=== PATIENT | male | born 1955 | race Caucasian/White ===

== ENCOUNTER 2016-06-04 15:44 | Emergency (ER) | payer OTHER ==
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
--- NOTE | 2016-06-04 19:02 | ED ORDER SUMMARY ---
..... Patient: EMILY MEJIA OrderSheet [facility] VisitID: [id number] [place] [address] 61y, M Registration Date/Time: 06/04/2016 ORDER SHEET Weight: 68.0 kg (stated) Allergies: None GENERAL ORDERS: Chest 1V Urgent (16:49 06/04/2016 Lula BLAS) (16:59 DMaziarka R.N.) Camp Program Director (Continuous) (16:49 06/04/2016 Lula BLAS) (16:50 DMaelizabetharka R.N.) Cardiac Panel Stat (16:50 06/04/2016 Lula BLAS) (16:50 DMaziarka R.N.) BNP Urgent (16:50 06/04/2016 Lula BLAS) (16:51 DMaziarka R.N.) PT with INR Urgent (16:50 06/04/2016 Lula BLAS) (16:51 DMaziarka R.N.) Oxygen (2 L/min) (NC) (16:50 06/04/2016 Lula BLAS) (16:50 DMaziarka R.N.) Pulse oximeter (16:50 06/04/2016 Lula BLAS) (16:50 DMaziarka R.N.) EKG - ER Stat (16:50 06/04/2016 Lula BLAS) (16:50 DMaziarka R.N.) (16:52 PWeiler ER Tech1) Troponin-I Urgent (18:06 06/04/2016 Lula BLAS) (Ack 18:07 George) (18:30 DMaziarka R.N.) MEDICATION ORDERS: DuoNeb Neb Tx 1 unit dose (NOW) (16:50 06/04/2016 Lula BLAS) (16:54 MNance) Metoprolol PO 50 mg (HIGH ALERT MEDICATION, NOW) (18:02 06/04/2016 Lula BLAS) (Ack 18:02 DMaziarka R.N.) (18:06 DMaziarka R.N.) IV FLUIDS: IV NS : initial bolus 500 mL (1000 mL/hr), then 100 mL/hr (NOW) (16:49 06/04/2016 Lula BLAS) (17:00 DMaziarka R.N.) Solu-MEDROL IV 125 mg (NOW) (16:50 06/04/2016 Lula BLAS) (16:59 DMaziarka R.N.) Dilaudid IV 1 mg (HIGH ALERT MEDICATION, NOW) (16:57 06/04/2016 Lula BLAS) (17:08 DMaziarka R.N.) Dilaudid IV 1 mg (HIGH ALERT MEDICATION, NOW) (18:29 06/04/2016 Lula BLAS) (18:36 DMaziarka R.N.) ORDER SHEET NOTES: [Electronically signed by Olvin Cabrrea R.N. (19:28 06/04/2016)] [Electronically signed by Nae Duque MD (14:34 06/14/2016)] [Electronically locked/signed by Olvin Cabrera R.N. (19:28 06/04/2016)]
--- NOTE | 2016-06-04 19:02 | ED ORDER SUMMARY ---
..... Patient: EMILY MEJIA OrderSheet [facility] VisitID: [id number] [place] [address] 61y, M Registration Date/Time: 06/04/2016 ORDER SHEET Weight: 68.0 kg (stated) Allergies: None GENERAL ORDERS: Chest 1V Urgent (16:49 06/04/2016 Lula BLAS) (16:59 DMaziarka R.N.) Package Delivery Driver (Continuous) (16:49 06/04/2016 Lula BLAS) (16:50 DMaelizabetharka R.N.) Cardiac Panel Stat (16:50 06/04/2016 Lula BLAS) (16:50 DMaziarka R.N.) BNP Urgent (16:50 06/04/2016 Lula BLAS) (16:51 DMaziarka R.N.) PT with INR Urgent (16:50 06/04/2016 Lula BLAS) (16:51 DMaziarka R.N.) Oxygen (2 L/min) (NC) (16:50 06/04/2016 Lula BLAS) (16:50 DMaziarka R.N.) Pulse oximeter (16:50 06/04/2016 Lula BLAS) (16:50 DMaziarka R.N.) EKG - ER Stat (16:50 06/04/2016 Lula BLAS) (16:50 DMaziarka R.N.) (16:52 PWeiler ER Tech1) Troponin-I Urgent (18:06 06/04/2016 uLla BLAS) (Ack 18:07 George) (18:30 DMaziarka R.N.) MEDICATION ORDERS: DuoNeb Neb Tx 1 unit dose (NOW) (16:50 06/04/2016 Lula BLAS) (16:54 MNance) Metoprolol PO 50 mg (HIGH ALERT MEDICATION, NOW) (18:02 06/04/2016 Lula BLAS) (Ack 18:02 DMaziarka R.N.) (18:06 DMaziarka R.N.) IV FLUIDS: IV NS : initial bolus 500 mL (1000 mL/hr), then 100 mL/hr (NOW) (16:49 06/04/2016 Lula BLAS) (17:00 DMaziarka R.N.) Solu-MEDROL IV 125 mg (NOW) (16:50 06/04/2016 Lula BLAS) (16:59 DMaziarka R.N.) Dilaudid IV 1 mg (HIGH ALERT MEDICATION, NOW) (16:57 06/04/2016 Lula BLAS) (17:08 DMaziarka R.N.) Dilaudid IV 1 mg (HIGH ALERT MEDICATION, NOW) (18:29 06/04/2016 Lula BLAS) (18:36 DMaziarka R.N.) ORDER SHEET NOTES: [Electronically signed by Olvin Cabrera R.N. (19:28 06/04/2016)] [Electronically signed by Nae Duque MD (14:34 06/14/2016)] [Electronically locked/signed by Olvin Cabrera R.N. (19:28 06/04/2016)]
--- NOTE | 2016-06-14 14:34 | ED DISCHARGE INSTRUCTIONS ---
Patient: EMILY MEJIA General Instructions [facility] VisitID: [id number] [address] [place] [address] 61y, M Registration Date/Time: 06/04/2016 Chest pain characterized as "tightness". No precordial pain. Acute exacerbation of COPD. INSTRUCTIONS Warnings: GENERAL WARNINGS: Return or contact your physician immediately if your condition worsens or changes unexpectedly, if not improving as expected, or if other problems arise. Your Current Medications: CONTINUE TAKING THE FOLLOWING MEDICATIONS: HCTZ*. Insulin Lantus*. Losartan Potassium Oral. MetFORMIN HCl Oral. Metoprolol Tartrate Oral. Omepra*. Omeprazole Oral. Pravastatin Sodium Oral. TraZODone HCl Oral. Warfarin*. Warfarin Sodium Oral. Understanding of the discharge instructions verbalized by patient and family. Follow-up with: [facility], , , [address], , [place], [id number] Follow up. Call for the next available appointment. Reason for referral: Follow up ER visit. ADDITIONAL INFORMATION COPD Flare Both emphysema and chronic bronchitis are forms of chronic obstructive pulmonary disease (COPD). It is most often caused by many years of smoking tobacco. Many things can make your lung disease suddenly get worse. These causes include the common cold, pneumonia, acute bronchitis, missing doses of your regular breathing medicines, or being around smoke, dust, or other air pollutants. A COPD flare may last 7 to 14 days. Your doctor may prescribe medicineto relax your airways and prevent wheezing. Your doctor may also prescribe antibiotics if he or she thinks you havea bacterial infection. Prednisone can helpease inflammation in a severe attack. Home care Here are things you can do at home: Drink lots of water or other fluids (at least 10 glasses a day) during an attack. This will loosen lung secretions and make it easier to breathe. If you have heart or kidney disease, check with your doctor before you drink extra amounts of fluids. Take prescribed medicine exactly at the times advised. If you have a hand-held inhaler or aerosol breathing medicine, don't use it more than once every 4 hours, unless your doctor tells you to. If you were givenan antibiotic or prednisone, take all of the medicine even if you are feeling better after a few days. Don't smoke. Avoid being aroundthe smoke of others. If you were given an inhaler, use it exactly as directed. If you need to use it more often than prescribed, your condition may be getting worse. Call your doctor. Follow-up care Follow up with your health care provider.If you are 65 or older or have chronic asthma or COPD, you should get a single dose of the pneumococcal vaccine and aflu shot each year. You may need a second dose of the pneumococcal vaccine if you had the first dose at a younger age. Your health care provider will let you know if you need a second dose. For all other people, the usual dose for the pneumococcal vaccine is 1 or 2 shots. Yourprovider can discuss this with you. When to seek medical care Get prompt medical attention ifany of these occur: Increased wheezing or shortness of breath Need to use your inhalers more often than usual without relief Fever of 100.4F(38C) or higher, or as directed by your health care provider Coughing up lots of dark-colored or bloody sputum (mucus) Chest pain with each breath You do not start to improve within 24 hours Chest Pain, Uncertain Cause Chest pain can happen for a number of reasons. Sometimes the cause can not be determined. If yourcondition does not seem serious, and your pain does not appear to be coming from your heart, your doctor may recommend watching it closely. Sometimes the signs of a serious problem take more time to appear. Therefore, watch for the warning signs listed below. Home care After your visit, follow these recommendations: Rest today and avoid strenuous activity. Take any prescribed medicine as directed. Follow-up care Follow up with your doctor or this facility as instructed or if you do not start to feel better within 24 hours. Call 911 Get immediate medical attention if any of the following occur: A change in the type of pain: if it feels different, becomes more severe, lasts longer, or begins to spread into your shoulder, arm, neck, jaw or back Shortness of breath or increased pain with breathing Weakness, dizziness, or fainting Rapid heart beat Get prompt medical attention Call your doctor right away if any of the following occur: Cough with dark colored sputum (phlegm) or blood Fever of 100.4F(38C) or higher, or as directed by your health care provider Swelling, pain or redness in one leg You have been given the following additional information: COPD Flare Chest Pain, Uncertain Cause (Electronically signed by Nae Duque MD 06/14/2016 14:34)
--- NOTE | 2016-06-14 14:35 | ED MED RECONCILIATION SUMMARY ---
Patient: EMILY MEJIA Medication Reconciliation Report [facility] VisitID: [id number] [place] [address] 61y, M Registration Date/Time: 06/04/2016 Weight: 68.0 kg Height/Length: 67 in. BMI: 23.5 ALLERGIES: None The patient's Home Medications are listed below: CONTINUE TAKING THE FOLLOWING MEDICATIONS: HCTZ Insulin Lantus Losartan Potassium Oral MetFORMIN HCl Oral Metoprolol Tartrate Oral Omepra Omeprazole Oral Pravastatin Sodium Oral TraZODone HCl Oral Warfarin Warfarin Sodium Oral The source(s) of the original Home Medication information: Not obtained. The following Medications were given to the patient in the Emergency Department: Duoneb [Neb Tx] Neb TX 1 unit dose, administered: 06/04/2016 4:54:00 PM SOLU-MEDROL [IVP] IVP 125 mg, administered: 06/04/2016 4:59:00 PM IV NS IV Fluids bolus 500 mL over 30 minute(s), then 100 mL/hr, administered: 06/04/2016 5:00:00 PM Dilaudid [IVP] IVP 1 mg, administered: 06/04/2016 5:08:00 PM Metoprolol [PO] PO 50 mg, administered: 06/04/2016 6:06:00 PM Dilaudid [IVP] IVP 1 mg, administered: 06/04/2016 6:36:00 PM The following Medications were prescribed to the patient: None.
--- NOTE | 2016-06-14 14:35 | ED MAR SUMMARY ---
..... Medication Administration Record [facility] [address] [place] [address] Patient: EMILY MEJIA Visit ID: [id number] 61y, M Weight: 68.0 kg Height/Length: 67 in BMI: 23.5 ALLERGIES: None Given 16:54 06/04/2016 Gilbert Wilcox, Medication Administered: DUONEB [NEB TX] (IPRATROPIUM-ALBUTEROL), Dose: 1 unit dose Nebulizer Neb TX. Medication Ordered: DuoNeb Neb Tx 1 unit dose (NOW). Given 16:59 06/04/2016 Ramya Kiran R.N. Medication Administered: SOLU-MEDROL [IVP] (METHYLPREDNISOLONE SODIUM SUCC), Dose: 125 mg IVP over 2 minute(s), Site: #1 right AC. Medication Ordered: Solu-MEDROL IV 125 mg (NOW). Start 17:00 06/04/2016 Ramya Kiran RNina, Stop 19:13 06/04/2016 Olvin Cabrera RDimasNDimas Medication Administered: IV NS (SALINE), Dose: IV Fluids over 5 hour(s), Rate: 100 mL/hr, Bolus: 500 mL over 30 minute(s), Dispensed: 1000 mL bag, Site: #1 right AC. Medication Ordered: IV NS : initial bolus 500 mL (1000 mL/hr), then 100 mL/hr (NOW). Given 17:08 06/04/2016 Ramya Kiran R.N. Medication Administered: DILAUDID [IVP] (HYDROMORPHONE HCL PF), Dose: 1 mg IVP over 2 minute(s), Site: #1 right AC. Medication Ordered: Dilaudid IV 1 mg (HIGH ALERT MEDICATION, NOW). Given 18:06 06/04/2016 Ramya Kiran R.N. Medication Administered: METOPROLOL [PO], Dose: 50 mg PO. Medication Ordered: Metoprolol PO 50 mg (HIGH ALERT MEDICATION, NOW). Given 18:36 06/04/2016 Ramya Kiran R.N. Medication Administered: DILAUDID [IVP] (HYDROMORPHONE HCL PF), Dose: 1 mg IVP over 2 minute(s), Site: #1 right AC. Medication Ordered: Dilaudid IV 1 mg (HIGH ALERT MEDICATION, NOW).
--- NOTE | 2016-06-14 14:35 | ED MAR SUMMARY ---
..... Medication Administration Record [facility] [address] [place] [address] Patient: EMILY MEJIA Visit ID: [id number] 61y, M Weight: 68.0 kg Height/Length: 67 in BMI: 23.5 ALLERGIES: None Given 16:54 06/04/2016 Gilbert Wilcox, Medication Administered: DUONEB [NEB TX] (IPRATROPIUM-ALBUTEROL), Dose: 1 unit dose Nebulizer Neb TX. Medication Ordered: DuoNeb Neb Tx 1 unit dose (NOW). Given 16:59 06/04/2016 Ramya Kiran R.N. Medication Administered: SOLU-MEDROL [IVP] (METHYLPREDNISOLONE SODIUM SUCC), Dose: 125 mg IVP over 2 minute(s), Site: #1 right AC. Medication Ordered: Solu-MEDROL IV 125 mg (NOW). Start 17:00 06/04/2016 Ramya Kiran RNina, Stop 19:13 06/04/2016 Olvin Cabrera RDimasNDimas Medication Administered: IV NS (SALINE), Dose: IV Fluids over 5 hour(s), Rate: 100 mL/hr, Bolus: 500 mL over 30 minute(s), Dispensed: 1000 mL bag, Site: #1 right AC. Medication Ordered: IV NS : initial bolus 500 mL (1000 mL/hr), then 100 mL/hr (NOW). Given 17:08 06/04/2016 Ramya Kiran R.N. Medication Administered: DILAUDID [IVP] (HYDROMORPHONE HCL PF), Dose: 1 mg IVP over 2 minute(s), Site: #1 right AC. Medication Ordered: Dilaudid IV 1 mg (HIGH ALERT MEDICATION, NOW). Given 18:06 06/04/2016 Rmaya Kiran R.N. Medication Administered: METOPROLOL [PO], Dose: 50 mg PO. Medication Ordered: Metoprolol PO 50 mg (HIGH ALERT MEDICATION, NOW). Given 18:36 06/04/2016 Ramya Kiran R.N. Medication Administered: DILAUDID [IVP] (HYDROMORPHONE HCL PF), Dose: 1 mg IVP over 2 minute(s), Site: #1 right AC. Medication Ordered: Dilaudid IV 1 mg (HIGH ALERT MEDICATION, NOW).
--- NOTE | 2016-06-14 14:35 | ED MED RECONCILIATION SUMMARY ---
Patient: EMILY MEJIA Medication Reconciliation Report [facility] VisitID: [id number] [place] [address] 61y, M Registration Date/Time: 06/04/2016 Weight: 68.0 kg Height/Length: 67 in. BMI: 23.5 ALLERGIES: None The patient's Home Medications are listed below: CONTINUE TAKING THE FOLLOWING MEDICATIONS: HCTZ Insulin Lantus Losartan Potassium Oral MetFORMIN HCl Oral Metoprolol Tartrate Oral Omepra Omeprazole Oral Pravastatin Sodium Oral TraZODone HCl Oral Warfarin Warfarin Sodium Oral The source(s) of the original Home Medication information: Not obtained. The following Medications were given to the patient in the Emergency Department: Duoneb [Neb Tx] Neb TX 1 unit dose, administered: 06/04/2016 4:54:00 PM SOLU-MEDROL [IVP] IVP 125 mg, administered: 06/04/2016 4:59:00 PM IV NS IV Fluids bolus 500 mL over 30 minute(s), then 100 mL/hr, administered: 06/04/2016 5:00:00 PM Dilaudid [IVP] IVP 1 mg, administered: 06/04/2016 5:08:00 PM Metoprolol [PO] PO 50 mg, administered: 06/04/2016 6:06:00 PM Dilaudid [IVP] IVP 1 mg, administered: 06/04/2016 6:36:00 PM The following Medications were prescribed to the patient: None.
== END 2016-06-04 19:24 | disposition home or self-care (01) ==
LOC: ED SRH 15:44
DX: J44.0 Chronic obstructive pulmonary disease with (acute) lower respiratory infection (principal); R07.89 Other chest pain; I10 Essential (primary) hypertension; E11.9 Type 2 diabetes mellitus without complications; Z79.01 Long term (current) use of anticoagulants; Z79.4 Long term (current) use of insulin; Z79.84 Long term (current) use of oral hypoglycemic drugs; Z79.899 Other long term (current) drug therapy
CPT/HCPCS: 90100; 90616; 91320; 91643; 92610; 92720; 94060; 95059